=== PATIENT | female | born 1970 | race Caucasian/White ===

== ENCOUNTER 2023-10-23 20:39 | Emergency (ER) | payer OTHER ==
[2023-10-23 21:02] VITALS: TEMP 98
--- NOTE | 2023-10-23 21:41 | ED ---
Extremity Problem HPI - General Source: patient, EMS, RN notes reviewed Mode of arrival: EMS Limitations: no limitations <Pam Presley - Last Filed: 10/23/23 21:39> <Manav Green - Last Filed: 10/24/23 02:11> - General Chief complaint: Extremity Problem,Nontraumatic Stated complaint: bilateral leg swelling Time Seen by Provider: 10/23/23 20:52 - History of Present Illness Initial comments: Quick Note- THis is a 53-year-old female with a history of unspecified clotting disorder presents emergency department chief complaint of bilateral lower extremity edema. Patient states that she was at [place] [facility] a very medical discharge for further evaluation of bilateral lower swelling. Patient states that she has prescribed enoxaparin shots which she has not been taking as prescribed for the past 5 months due to loss of health insurance. States that she has not taken a shower over the past week. She reports a history of blood clots and 2020. She denies chest pain, shortness of breath, dizziness, lightheadedness, recent travel. (Pam Presley) Patient originally evaluated as a quick note. Presents from [place] after being medically discharged for bilateral lower extremity edema. Was on Lovenox for DVT prophylaxis has been off it for multiple weeks. Also was supposed to be using compression stockings which she has not been using. States it is symmetrical. Denies any other acute complaints including denying shortness of breath, chest pain, abdominal pain, nausea, vomiting. No fevers or chills. Presents for further evaluation. I evaluated the patient when she was placed in room. (Manav Green) - Related Data Allergies Allergy/AdvReac Type Severity Reaction Status Date / Time No Known Allergies Allergy Verified 10/23/23 20:49 Review of Systems ROS Other: All systems not noted in ROS Statement are negative. <Pam Presley - Last Filed: 10/23/23 21:39> ROS Other: All systems not noted in ROS Statement are negative. <Manav Green - Last Filed: 10/24/23 02:11> ROS Statement: Those systems with pertinent positive or pertinent negative responses have been documented in the HPI. Review of Systems: CONST: Denies fever EYES: Denies blurry vision ENT: Denies nasal congestion C/V: Denies Chest pain RESP: Denies shortness of breath GI: Denies abdominal pain : Denies dysuria SKIN: Denies rash. MSK: Endorses symmetrical lower extremity swelling NEURO: Denies headache (Manav Green) Past Medical History Past Medical History: Deep Vein Thrombosis (DVT), Hypertension History of Any Multi-Drug Resistant Organisms: None Reported Past Surgical History: Bariatric Surgery Past Psychological History: Anxiety Smoking Status: Current every day smoker Past Alcohol Use History: Abuse, Daily Past Drug Use History: None Reported <Pam Presley - Last Filed: 10/23/23 21:39> General Exam Limitations: no limitations <Pam Presley - Last Filed: 10/23/23 21:39> <Manav Green - Last Filed: 10/24/23 02:11> - General Exam Comments Initial Comments: Visual Physical Exam Vital signs reviewed General: Well-appearing, nontoxic, no acute distress. Head: Normocephalic, atraumatic Eyes: PERRLA, EOMI ENT: Airway patent Chest: Nonlabored breathing Skin: No visual rash, normal skin tone Neuro: Alert and oriented 3 Musculoskeletal: No gross abnormalities (Pam Presley) General: Appears in no acute distress. HEAD: Normal with no signs of head trauma. EYES: PERRLA, EOMI, conjunctiva normal, no discharge. ENT: Hearing grossly intact, normal oropharynx. RESPIRATORY: Clear breath sounds bilaterally. No wheezes, rales, or rhonchi. C/V: Regular rate and rhythm. S1 and S2 auscultated, pitting edema in bilateral lower extremities that is symmetrical up to the knees., peripheral pulses 2+ and intact throughout ABD: Abd is soft, nontender, nondistended EXT: Normal range of motion, no obvious deformity SKIN: No rashes or lesions observed on exposed skin. NEURO: Alert and oriented x 4. (Manav Green) Course Vital Signs 10/23/23 10/23/23 10/24/23 20:44 23:05 00:17 Temperature 98.0 F Pulse Rate 77 63 72 Respiratory 18 18 15 Rate Blood Pressure 129/85 142/91 151/100 O2 Sat by Pulse 98 95 97 Oximetry Medical Decision Making <Pam Presley - Last Filed: 10/23/23 21:39> - Lab Data Result diagrams: 10/23/23 21:48 10/23/23 21:48 <Manav Green - Last Filed: 10/24/23 02:11> - Medical Decision Making I completed the quick note portion of this chart signed Pam Presley PA-C (Pam Presley) Was pt. sent in by a medical professional or institution ([facility] Pressley, FAMILY [employer] REGISTRAR, urgent care, hospital, or custodial...) When possible be specific @ -No Did you speak to anyone other than the patient for history (EMS, parent, family, police, friend...)? What history was obtained from this source @ -No Did you review nursing and triage notes (agree or disagree)? Why? @ -I reviewed and agree with nursing and triage notes Were old charts reviewed (outside hosp., previous admission, EMS record, old EKG, old radiological studies, urgent care reports/EKG's, custodial records)? Report findings @ -No old charts were reviewed Differential Diagnosis (chest pain, altered mental status, abdominal pain women, abdominal pain men, vaginal bleeding, weakness, fever, dyspnea, syncope, headache, dizziness, GI bleed, back pain, seizure, CVA, palpatations, mental health, musculoskeletal)? @ -DVT, dependent edema, lymphedema, CHF. This list is not all inclusive. EKG interpreted by me (3pts min.). @ -None done X-rays interpreted by me (1pt min.). @ -None done CT interpreted by me (1pt min.). @ -None done U/S interpreted by me (1pt. min.). @ -Bilateral lower extremity venous duplex negative for DVT What testing was considered but not performed or refused? (CT, X-rays, U/S, labs)? Why? @ -None What meds were considered but not given or refused? Why? @ -None Did you discuss the management of the patient with other professionals (professionals i.e. [facility] Press[facility], FAMILY COURT REGISTRAR, lab, RT, psych nurse, social media specialist, boiler reliner, teacher, transit authority police officer, vocational case manager)? Give summary @ -No Was smoking cessation discussed for >3mins.? @ -No Was critical care preformed (if so, how long)? @ -No Were there social determinants of health that impacted care today? How? (Homelessness, low income, unemployed, alcoholism, drug addiction, transportation, low edu. Level, literacy, decrease access to med. care, longterm, rehab)? @ -No Was there de-escalation of care discussed even if they declined (Discuss DNR or withdrawal of care, Hospice)? DNR status @ -No What co-morbidities impacted this encounter? (DM, HTN, Smoking, COPD, CAD, Cancer, CVA, ARF, Chemo, Hep., AIDS, mental health diagnosis, sleep apnea, morbid obesity)? @ -None Was patient admitted / discharged? Hospital course, mention meds given and route, prescriptions, significant lab abnormalities, going to OR and other pertinent info. @ -Patient presents with lower extremity edema. States she does have a history of lymphedema but has been worse lately. She has not been using her compression stockings. Also was previously on Lovenox empirically for DVT prophylaxis. Has been off that for multiple weeks as well. Presents for further evaluation. I evaluated her when she was placed in room. Vital signs are within acceptable limits. Ultrasound showed no evidence of DVT. Labs are still pending at this time. She will be reevaluated once remainder the labs are back. She was in agreement this plan. Patient's laboratory studies including BNP within acceptable limits. Mildly anemic but is not currently on blood thinners and has no symptoms of anemia at this time. I discussed results with the patient. I believe it is safe for her to be disc harged home. She will be given contact information for PCPs in the area as well as shelters. Recommended she obtain compression socks. She was given Castillo bandages here in the department for wrapping. She was in agreement this plan. Strict return precautions discussed. I instructed the patient to follow up with their PCP in the next 1-3 days. I explained that the patient should return to the emergency department if they experience any worsening symptoms. Strict return precautions were discussed with the patient. The patient expressed understanding of these instructions. I answered all questions that the patient had. The patient was discharged home in good condition with their prescriptions and follow up information. Undiagnosed new problem with uncertain prognosis? @ -No Drug Therapy requiring intensive monitoring for toxicity (Heparin, Nitro, Insulin, Cardizem)? @ -No Were any procedures done? @ -No Diagnosis/symptom? @ -Dependent edema of the lower extremities Acute, or Chronic, or Acute on Chronic? @ -Acute on chronic Uncomplicated (without systemic symptoms) or Complicated (systemic symptoms)? @ -Uncomplicated Side effects of treatment? @ -None Exacerbation, Progression, or Severe Exacerbation] @ -No Poses a threat to life or bodily function? @ -unlikely (Manav Green) - Lab Data Lab Results 10/23/23 10/23/23 10/23/23 Range/Units 21:48 21:48 21:48 WBC 5.0 (3.8-10.6) k/uL RBC 3.74 L (3.80-5.40) m/uL Hgb 9.9 L (11.4-16.0) gm/dL Hct 33.4 L (34.0-46.0) % MCV 89.3 (80.0-100.0) fL MCH 26.6 (25.0-35.0) pg MCHC 29.8 L (31.0-37.0) g/dL RDW 15.9 H (11.5-15.5) % Plt Count 219 (150-450) k/uL MPV 8.6 Neutrophils % 39 % Lymphocytes % 45 % Monocytes % 9 % Eosinophils % 2 % Basophils % 1 % Neutrophils # 1.9 (1.3-7.7) k/uL Lymphocytes # 2.3 (1.0-4.8) k/uL Monocytes # 0.5 (0-1.0) k/uL Eosinophils # 0.1 (0-0.7) k/uL Basophils # 0.0 (0-0.2) k/uL Hypochromasia Slight PT 10.4 (10.0-12.5) sec INR 0.9 (<1.2) APTT 24.1 (22.0-30.0) sec Sodium 139 (137-145) mmol/L Potassium 4.2 (3.5-5.1) mmol/L Chloride 110 H (98-107) mmol/L Carbon Dioxide 23 (22-30) mmol/L Anion Gap 6 mmol/L BUN 14 (7-17) mg/dL Creatinine 0.54 (0.52-1.04) mg/dL Est GFR (CKD-EPI)AfAm >90 (>60 ml/min/1.73 sqM) Est GFR (CKD-EPI)NonAf >90 (>60 ml/min/1.73 sqM) Glucose 97 (74-99) mg/dL Calcium 8.6 (8.4-10.2) mg/dL Total Bilirubin 0.5 (0.2-1.3) mg/dL AST 44 H (14-36) U/L ALT 37 H (4-34) U/L Alkaline Phosphatase 123 (38-126) U/L NT-Pro-B Natriuret Pep pg/mL Total Protein 6.6 (6.3-8.2) g/dL Albumin 3.7 (3.5-5.0) g/dL 10/23/23 Range/Units 23:00 WBC (3.8-10.6) k/uL RBC (3.80-5.40) m/uL Hgb (11.4-16.0) gm/dL Hct (34.0-46.0) % MCV (80.0-100.0) fL MCH (25.0-35.0) pg MCHC (31.0-37.0) g/dL RDW (11.5-15.5) % Plt Count (150-450) k/uL MPV Neutrophils % % Lymphocytes % % Monocytes % % Eosinophils % % Basophils % % Neutrophils # (1.3-7.7) k/uL Lymphocytes # (1.0-4.8) k/uL Monocytes # (0-1.0) k/uL Eosinophils # (0-0.7) k/uL Basophils # (0-0.2) k/uL Hypochromasia PT (10.0-12.5) sec INR (<1.2) APTT (22.0-30.0) sec Sodium (137-145) mmol/L Potassium (3.5-5.1) mmol/L Chloride (98-107) mmol/L Carbon Dioxide (22-30) mmol/L Anion Gap mmol/L BUN (7-17) mg/dL Creatinine (0.52-1.04) mg/dL Est GFR (CKD-EPI)AfAm (>60 ml/min/1.73 sqM) Est GFR (CKD-EPI)NonAf (>60 ml/min/1.73 sqM) Glucose (74-99) mg/dL Calcium (8.4-10.2) mg/dL Total Bilirubin (0.2-1.3) mg/dL AST (14-36) U/L ALT (4-34) U/L Alkaline Phosphatase (38-126) U/L NT-Pro-B Natriuret Pep 215 pg/mL Total Protein (6.3-8.2) g/dL Albumin (3.5-5.0) g/dL Disposition <Pam Presley - Last Filed: 10/23/23 21:39> Is patient prescribed a controlled substance at d/c from ED?: No Time of Disposition: 23:43 <Manav Green - Last Filed: 10/24/23 02:11> Clinical Impression: Dependent edema Disposition: HOME SELF-CARE Condition: Good Additional Instructions: obtain compression stockings for treatment. Referrals: None,Stated [Primary Care Provider] - 1-2 days Forms: Area PCPs, [facility], [facility]
[2023-10-23 22:18] LABS: ALT 37 U/L (4-34); AST 44 U/L (14-36); African American GFR (CKD) >90 (>60 ml/min/1.73 sqM); Albumin 3.7 g/dL (3.5-5.0); Alkaline Phosphatase 123 U/L (38-126); Anion Gap 6 mmol/L; Blood Urea Nitrogen 14 mg/dL (7-17); Calcium 8.6 mg/dL (8.4-10.2); Carbon Dioxide 23 mmol/L (22-30); Chloride 110 mmol/L (98-107); Glucose 97 mg/dL (74-99); Non-African American GFR(CKD) >90 (>60 ml/min/1.73 sqM); Potassium 4.2 mmol/L (3.5-5.1); Sodium 139 mmol/L (137-145); Total Bilirubin 0.5 mg/dL (0.2-1.3); Total Protein 6.6 g/dL (6.3-8.2)
[2023-10-23 22:19] LABS: INR 0.9 (<1.2); Partial Thromboplastin Time 24.1 sec (22.0-30.0); Prothrombin Time 10.4 sec (10.0-12.5)
[2023-10-23 22:30] LABS: Basophils % (A) 1 %; Eosinophils # (A) 0.1 k/uL (0-0.7); Eosinophils % (A) 2 %; HCT 33.4 % (34.0-46.0); HGB 9.9 gm/dL (11.4-16.0); Hypochromasia Slight; Lymphocytes # (A) 2.3 k/uL (1.0-4.8); Lymphocytes % (A) 45 %; MCH 26.6 pg (25.0-35.0); MCHC 29.8 g/dL (31.0-37.0); MCV 89.3 fL (80.0-100.0); Mean Platelet Volume 8.6; Monocytes # (A) 0.5 k/uL (0-1.0); Monocytes % (A) 9 %; Neutrophils # (A) 1.9 k/uL (1.3-7.7); Neutrophils % (A) 39 %; Platelet Count 219 k/uL (150-450); RBC 3.74 m/uL (3.80-5.40); RDW 15.9 % (11.5-15.5)
--- NOTE | 2023-10-23 22:50 | US ---
EXAMINATION TYPE: US venous doppler duplex LE DATE OF EXAM: 10/23/2023 10:20 PM COMPARISON: NONE CLINICAL INDICATION: Female, 53 years old with history of edema, known clotting disorder; Patient sta anuja hx of clotting disorder and leg swelling. Patient supposed to take blood thinners but not. SIDE PERFORMED: Bilateral TECHNIQUE: The lower extremity deep venous system is examined utilizing real time linear array sonog kendy with graded compression, doppler sonography and color-flow sonography. VESSELS IMAGED: Common Femoral Vein Deep Femoral Vein Greater Saphenous Vein * Femoral Vein Popliteal Vein Small Saphenous Vein * Proximal Calf Veins (* superficial vessels) Slightly limited due to deep course of femoral vein. Right Leg: Negative for DVT Left Leg: Negative for DVT Grayscale, color doppler, spectral doppler imaging performed of the deep veins of the bilateral lower extremities. There is normal flow, compressibility, vascular waveforms. IMPRESSION: Slightly suboptimal study but no convincing evidence of acute DVT in either lower extrem ity.
[2023-10-24 01:20] VITALS: BP 151/100; PULSE 72; RESP 15
== END 2023-10-24 00:17 | disposition home or self-care (01) ==
LOC: EC 20:39
DX: R60.9 Edema, unspecified (principal); F17.200 Nicotine dependence, unspecified, uncomplicated
CPT/HCPCS: 36415; 80053; 83880; 85025; 85610; 85730; 93970; 99284